=== PATIENT | female | born 1945 | race Caucasian/White ===

== ENCOUNTER → 2025-02-24 10:24 | Outpatient (REF) | payer MEDICAID, SELFPAY ==
[2025-02-24 11:27] LABS: Hematocrit 34.4 % (37.0-47.0); Hemoglobin 10.8 g/dL (12.0-16.0); Mean Corp Hgb Conc. 31.4 g/dL (33.0-37.0); Mean Corpuscular Volume 83.5 fL (81.0-99.0); Nucleated Red Blood Cells % 0 %; Platelet Count 285 10^3/uL (130-400); Red Cell Dist. Width 16.2 % (11.5-14.5)
[2025-02-24 12:12] LABS: ALT (SGPT) 17 U/L (0-35); AST (SGOT) 18 U/L (14-36); Albumin 4.0 g/dl (3.5-5.0); Alkaline Phosphatase 84 U/L (38-126); Blood Urea Nitrogen 18 mg/dl (7-17); Calcium 9.4 mg/dl (8.4-10.2); Carbon Dioxide 28 mmol/L (22-30); Chloride 106 mmol/L (98-107); Glucose 99 mg/dl (70-99); HDL Cholesterol 58 mg/dl; LDL Cholesterol, Calculated 117 mg/dl; Potassium 4.6 mmol/L (3.5-5.1); Sodium 140 mmol/L (135-145); Total Protein 6.8 g/dl (6.3-8.2); Very Low Density Lipoprotein 18 mg/dl (0-30); eGFR > 60.00
[2025-02-24 18:11] LABS: CA 125 8.0 U/mL (0-35)
== END ==
LOC: REG 10:24
PROVIDERS: ATTENDING PHYSICIAN Hospitalist
DX: Z00.00 Encounter for general adult medical examination without abnormal findings (principal); E78.5 Hyperlipidemia, unspecified; Z85.43 Personal history of malignant neoplasm of ovary
CPT/HCPCS: 36415; 80053; 80061; 85025; 86304

== ENCOUNTER → 2025-03-08 06:52 | Outpatient (REF) | payer MEDICAID, SELFPAY | LOC: RAD 06:52 | PROVIDERS: ATTENDING PHYSICIAN Hospitalist | DX: K43.9 Ventral hernia without obstruction or gangrene (principal) | CPT/HCPCS: 74177; Q9967 ==

== ENCOUNTER → 2025-04-14 11:02 | Outpatient (REF) | payer MEDICAID, SELFPAY | LOC: MRI 3T 11:02 | PROVIDERS: ATTENDING PHYSICIAN Hospitalist | DX: R42 Dizziness and giddiness (principal) | CPT/HCPCS: 70551 ==

== ENCOUNTER → 2025-06-01 07:04 | Outpatient (REF) | payer MEDICAID, SELFPAY | LOC: REG 07:04 | PROVIDERS: ATTENDING PHYSICIAN Hospitalist | DX: M25.561 Pain in right knee (principal); M25.562 Pain in left knee | CPT/HCPCS: 73560 ==